=== PATIENT | female | born 1975 | race Asian ===

== ENCOUNTER 2023-03-04 19:00 | Emergency (ER) | payer OTHER ==
[~2023-03-04] VITALS: Ht 167.6 cm; Wt 59.8 kg
[2023-03-04 19:42] VITALS: BP 132/67; PULSE 64; RESP 18; TEMP 98.3; O2SAT 100
== END 2023-03-05 00:32 | disposition home or self-care (01) ==
LOC: ER 19:00
DX: S09.90XA Unspecified injury of head, initial encounter (principal); G43.909 Migraine, unspecified, not intractable, without status migrainosus; G89.11 Acute pain due to trauma; Z90.49 Acquired absence of other specified parts of digestive tract; Z88.0 Allergy status to penicillin; X58.XXXA Exposure to other specified factors, initial encounter; Y93.89 Activity, other specified; Y92.89 Other specified places as the place of occurrence of the external cause; Y99.8 Other external cause status
CPT/HCPCS: 99284